=== PATIENT | male | born 1965 | race Caucasian/White ===

== ENCOUNTER 2020-08-30 01:27 | Emergency (ER) | payer OTHER, SELFPAY ==
[~2020-08-30] VITALS: Ht 172.7 cm; Wt 91.6 kg
[2020-08-30 01:28] VITALS: BP 147/88
[2020-08-30] MEDS ORDERED: AUGM875T28 PO (01:52)
[2020-08-30] MEDS ORDERED: AUGMENTIN 875 MG TAB PO ONE (02:00)
== END 2020-08-30 02:42 | disposition home or self-care (01) ==
LOC: M ED 01:27
DX: S61.250A Open bite of right index finger without damage to nail, initial encounter (principal); W54.0XXA Bitten by dog, initial encounter; Y92.009 Unspecified place in unspecified non-institutional (private) residence as the place of occurrence of the external cause; Y93.84 Activity, sleeping; Y99.8 Other external cause status

== ENCOUNTER 2022-03-06 17:14 | Emergency (ER) | payer OTHER, SELFPAY ==
[~2022-03-06] VITALS: Ht 172.7 cm; Wt 79.2 kg
[~2022-03-06 17:14] MED LIST: AUGM875T28 PO
[2022-03-06] MEDS ORDERED: PROAAER10 INH (17:25)
[2022-03-06] MEDS ORDERED: CYCL-707 PO (19:49)
[2022-03-06] MEDS ORDERED: IBUP80TA PO (19:49)
[2022-03-06] MEDS ORDERED: KETOROLAC 60MG 2ML VIAL IM ONE (19:50)
[2022-03-06 20:14] VITALS: BP 129/78
== END 2022-03-06 20:16 | disposition home or self-care (01) ==
LOC: M ED 17:14
DX: S16.1XXA Strain of muscle, fascia and tendon at neck level, initial encounter (principal); S39.012A Strain of muscle, fascia and tendon of lower back, initial encounter; V49.40XA Driver injured in collision with unspecified motor vehicles in traffic accident, initial encounter; M43.02 Spondylolysis, cervical region; M48.061 Spinal stenosis, lumbar region without neurogenic claudication; M51.36 Other intervertebral disc degeneration, lumbar region; I71.9 Aortic aneurysm of unspecified site, without rupture; J45.909 Unspecified asthma, uncomplicated; F43.10 Post-traumatic stress disorder, unspecified; F17.210 Nicotine dependence, cigarettes, uncomplicated; Z79.51 Long term (current) use of inhaled steroids
CPT/HCPCS: 70450; 72125; 72131; 96372; 99283; J1885

== ENCOUNTER → 2022-03-20 | Outpatient (CLI) | payer OTHER ==
[~2022-03-20] MED LIST changes: +CYCL-707 PO; +IBUP80TA PO; +PROAAER10 INH
== END ==
LOC: M RAD 09:57
PROVIDERS: ATTEND Internal Medicine
DX: Z87.891 Personal history of nicotine dependence (principal)

== ENCOUNTER 2024-03-01 20:33 | Emergency (ER) | payer OTHER ==
[2024-03-01 21:38] LABS: BASO # 0.1 10^3/uL (0.0-0.2); EOS # 0.2 10^3/uL (0.0-0.5); EOS % 2.9 % (0.0-3.0); HEMATOCRIT 42.6 % (42.0-52.0); HEMOGLOBIN 14.9 g/dl (13.5-17.5); LYMPH # 2.8 10^3/uL (1.5-5.0); LYMPH % 38.1 % (24.0-44.0); MEAN CORPUSCULAR HEMOGLOBIN 36.5 pg (27.0-33.0); MEAN CORPUSCULAR VOLUME 104.4 fl (80.0-96.0); MONO # 0.7 10^3/uL (0.0-0.8); MONO % 9.1 % (2.0-8.0); NEUTROPHILS # 3.5 10^3/uL (1.5-8.5); NEUTROPHILS % 48.6 % (36.0-66.0); RED BLOOD COUNT 4.08 10^6/uL (4.30-6.10); WHITE BLOOD COUNT 7.3 10^3/uL (4.0-10.0)
[2024-03-01 21:44] LABS: PLATELET COUNT, AUTOMATED 91 10^3/uL (150-450)
[2024-03-01 21:57] LABS: ALBUMIN 3.6 G/DL (3.2-5.2); ALKALINE PHOSPHATASE 99 U/L (46-116); ALT/SGPT 66 U/L (7.0-40); AST/SGOT 103 U/L (<34); BILIRUBIN,DIRECT 0.3 MG/DL (<0.4); BILIRUBIN,TOTAL 0.6 MG/DL (0.3-1.2); BLOOD UREA NITROGEN 7 MG/DL (9-23); CALCIUM LEVEL 8.5 MG/DL (8.5-10.1); CARBON DIOXIDE LEVEL 26 MMOL/L (20-31); CHLORIDE LEVEL 106 MMOL/L (98-107); CREATININE FOR GFR 0.71 MG/DL (0.70-1.30); GLOMERULAR FILTRATION RATE > 60.0 (>56); GLUCOSE, FASTING 87 MG/DL (60-100); POTASSIUM SERUM 3.4 MMOL/L (3.5-5.1); SODIUM LEVEL 141 MMOL/L (136-145); TOTAL PROTEIN 6.8 G/DL (5.7-8.2)
[2024-03-01] MEDS: ALBUTEROL SULFATE 2.5MG/0.5ML INH NEB SOLN NEB ONE ×2 (22:43)
[2024-03-01] MEDS: NS 1,000 ML IV ONE (23:00)
[2024-03-02] MEDS: NS 1,000 ML IV ONE (02:45)
[2024-03-02] MEDS: ALBUTEROL 90 MCG/ACT 8GM HFA INHALER INH ONE (02:45)
[2024-03-02 04:00] VITALS: BP 129/68; TEMP 97.8; O2SAT 94
== END 2024-03-02 04:30 | disposition home or self-care (01) ==
LOC: EDBD 20:33 → M ED 20:33
DX: I44.0 Atrioventricular block, first degree (principal); I44.4 Left anterior fascicular block; I45.81 Long QT syndrome; V89.2XXA Person injured in unspecified motor-vehicle accident, traffic, initial encounter; Z79.51 Long term (current) use of inhaled steroids; Z79.1 Long term (current) use of non-steroidal anti-inflammatories (NSAID); Z79.899 Other long term (current) drug therapy

== ENCOUNTER → 2024-05-23 | Outpatient (CLI) | payer SELFPAY, OTHER | LOC: M OUTALCOH 13:30 | PROVIDERS: ATTEND Psychiatry & Neurology Psychiatry | DX: F10.10 Alcohol abuse, uncomplicated (principal); F17.200 Nicotine dependence, unspecified, uncomplicated ==

== ENCOUNTER 2024-12-17 23:43 | Emergency (ER) | payer OTHER ==
[~2024-12-17] VITALS: Ht 182.9 cm; Wt 88.1 kg
[2024-12-18] MEDS: KETOROLAC 30 MG/ML 1ML VIAL IV ONE (05:42)
[2024-12-18 05:51] LABS: BASO # 0.1 10^3/uL (0.0-0.2); BASO % 1.3 % (0.0-1.0); EOS # 0.3 10^3/uL (0.0-0.5); EOS % 2.9 % (0.0-3.0); HEMATOCRIT 42.7 % (42.0-52.0); LYMPH # 3.4 10^3/uL (1.5-5.0); LYMPH % 37.6 % (24.0-44.0); MEAN CORPUSCULAR HEMOGLOBIN 36.2 pg (27.0-33.0); MEAN CORPUSCULAR HGB CONC 35.1 g/dl (32.0-36.5); MEAN CORPUSCULAR VOLUME 103.1 fl (80.0-96.0); MONO # 0.9 10^3/uL (0.0-0.8); MONO % 9.5 % (2.0-8.0); NEUTROPHILS # 4.4 10^3/uL (1.5-8.5); NEUTROPHILS % 48.3 % (36.0-66.0); PLATELET COUNT, AUTOMATED 131 10^3/uL (150-450); RED BLOOD COUNT 4.14 10^6/uL (4.30-6.10)
[2024-12-18 06:23] LABS: BLOOD UREA NITROGEN 8 MG/DL (9-23); CALCIUM LEVEL 7.6 MG/DL (8.3-10.6); CARBON DIOXIDE LEVEL 28 MMOL/L (20-31); CHLORIDE LEVEL 107 MMOL/L (98-107); CREATININE FOR GFR 0.57 MG/DL (0.70-1.30); GLOMERULAR FILTRATION RATE > 90.0 (>49); GLUCOSE, FASTING 90 MG/DL (74-106); POTASSIUM SERUM 3.8 MMOL/L (3.5-5.1); SODIUM LEVEL 144 MMOL/L (136-145)
[2024-12-18 06:26] LABS: THYROID STIMULATING HORMONE 1.423 uIU/ML (0.55-4.78)
[2024-12-18] MEDS ORDERED: VALI5TAB PO (07:09)
[2024-12-18] MEDS ORDERED: IBUP80TA PO (07:11)
[2024-12-18] MEDS: diazePAM 10MG/2ML SYRINGE IV ONE (07:52)
[2024-12-18 09:30] VITALS: BP 125/73; TEMP 97.1; O2SAT 92
== END 2024-12-18 09:48 | disposition home or self-care (01) ==
LOC: M ED 23:43
DX: S00.03XA Contusion of scalp, initial encounter (principal); S16.1XXA Strain of muscle, fascia and tendon at neck level, initial encounter; Y92.9 Unspecified place or not applicable; Y93.9 Activity, unspecified; Y99.9 Unspecified external cause status; I44.4 Left anterior fascicular block; Z79.1 Long term (current) use of non-steroidal anti-inflammatories (NSAID); Z79.51 Long term (current) use of inhaled steroids
CPT/HCPCS: 70450; 71045; 72125; 80048; 84443; 85025; 93005; 96374; 96375; 99285; J1885; J3360